=== PATIENT | female | born 1960 | race Caucasian/White ===

== ENCOUNTER 2020-03-14 15:55 | Outpatient (CLI) | payer OTHER, SELFPAY ==
--- NOTE | 2020-03-14 16:15 | XR_ITS ---
WS: [id number] SCREENING DEXA SCAN [employer] CLINICAL INFORMATION: Screening COMPARISON: September 09, 2017 FINDINGS: The L1-L4 bone mineral density measures 0.994 g/cm2. This corresponds to a T score score of -1.6 and Z score of -0.2. Left femoral neck bone mineral density measures 0.791 g/cm2. This corresponds to a T score of -1.7 an d Z score of -0.7. Right femoral neck bone mineral density measures 0.800 g/cm2. This corresponds to a T score -1.7of an d Z score of -0.6. Mean femoral neck bone mineral density measures 0.796 g/cm2. This corresponds to a T score of -1.7 an d Z score of -0.7. XR/XR DEXA axial skeleton* 21875 IMPRESSION: Osteopenia Patient's FRAX calculated 10 year probability for major osteoporotic fracture i s 14.5 % and osteoporotic hip fracture is 2.0%. Bone mineral density in the lumbar spine decreased -8.8% and -5.6% in the femor al necks since 2017.
== END 2020-03-14 15:56 | disposition home or self-care (01) ==
LOC: RADWPI 15:59
PROVIDERS: Family Provider Family Medicine; PCP Family Medicine; Visit Provider Obstetrics & Gynecology
DX: Z13.820 Encounter for screening for osteoporosis (principal)
CPT/HCPCS: 77080

== ENCOUNTER 2020-06-23 07:58 | Outpatient (CLI) | payer OTHER, SELFPAY ==
[2020-06-23 08:28] LABS: Basophils % 0.9 %; Eosinophils # 0.1 10^3/uL (0.0-0.8); Eosinophils % 2.2 %; Hemoglobin 15.3 g/dL (11.5-15.3); Lymphocytes % 43.1 %; Mean Corpuscular HGB Conc 30.6 g/dL (30.0-36.0); Mean Corpuscular Hemoglobin 30.2 pg (28.0-34.0); Mean Corpuscular Volume 98.6 fL (81-99); Mean Platelet Volume 9.6 fL (7.4-10.4); Monocytes # 0.4 10^3/uL (0.2-0.9); Monocytes % 9.5 %; Neutrophils # 2.01 10^3/uL (1.8-7.7); Neutrophils % 44.1 %; Nucleated Red Blood Cells % 0 %; Platelet Count 217 10^3/cmm (130-400); Red Blood Count 5.07 10^6/uL (4.1-5.3); Red Cell Distribution Width 12.5 % (12.1-15.1); White Blood Count 4.6 10^3/uL (4.0-10.0)
[2020-06-23 09:01] LABS: Alanine Aminotransferase 18 U/L (0-33); Albumin Level 4.7 g/dL (3.5-5.2); Alkaline Phosphatase 85 IU/L (35-105); Anion Gap 12.1 (5-19); Aspartate Amino Transferase 23 U/L (0-32); Blood Urea Nitrogen 14 mg/dL (8-23); Calcium 9.5 mg/dL (8.5-10.5); Carbon Dioxide 26 mmol/L (22-29); Chloride 106 mmol/L (98-107); Chol HDL Ratio 3.24 mg/dL (0.0-4.40); Cholesterol 233 mg/dL (0-200); Globulin 2.6 g/dL (1.3-4.6); Glomerular Filtration Rate 85.4 mL/min (90-130); Glucose 102 mg/dL (65-115); HDL Cholesterol 72 mg/dL (60-100); LDL Cholesterol Calculated 146 mg/dL (50-129); LDL HDL Ratio 2.03 RATIO (0.00-3.22); Osmolality Calculated 291 mOsm/kg (285-295); Potassium 4.1 mmol/L (3.5-5.1); Sodium 140 mmol/L (136-145); Total Bilirubin 0.8 mg/dL (0.15-1.2); Total Protein 7.3 g/dL (6.6-8.7); Triglycerides 77 mg/dL (0-150)
[2020-06-23 11:07] LABS: 25 Hydroxy Vitamin D 60 ng/mL (30-100)
--- NOTE | 2020-06-26 10:06 | ONC FU_ITS ---
Dr. Chi Patient Follow-Up Note Patient: Purvi Dinh Unit #: [id number]: 1960 Dicatated By: Romie Chi M.D.Date of Visit:Jun 23, 2020 Onc Med Follow-up/Prog Note Chief Complaint: Breast cancer. History of Present Illness: This is a 60 year-old woman with grade 1 infiltrating lobular carcinoma of the right breast, stage IA (T1 C, N0, M0), ER/ DE positive and HER-2/darron negative. She had presented with a lump in the right breast. She underwent excisional biopsy on 11/03/09. Pathology showed well differentiated infiltrating lobular carcinoma measuring 1.0 x 0.7 cm. It was ER positive at 89% and DE positive at 96%. It was negative for overexpression of HER-2/darron by IHC and by FISH. The Oncotype DX showed a recurrence score of 20, which was in the low intermediate range. She underwent bilateral mastectomy/TRAM flap reconstruction in November of 2010. She was given adjuvant chemotherapy with Adriamycin/cyclophosphamide. The treatment was stopped after 3 cycles due to multiple toxicities which included a significant increase in her alkaline phosphatase level. It subsequently did return to normal. In March 2011 she started hormonal therapy with tamoxifen, as she was premenopausal at the diagnosis of her of breast cancer. She had multiple side effects with it and it had be discontinued within a month of starting treatment. In June 2011 she restarted hormonal therapy with monthly Zoladex injections. Ultimately, she did undergo hysterectomy/bilateral salpingo-oophorectomy in March 2012, and as of May 2012 she continued adjuvant hormonal therapy with anastrozole. In March 2013 she seen in the emergency room on two occasions for passing out. Thereafter she did not pass out any more, but she did continue to have episodes of extreme weakness/fatigue. We were unable to find any definite cause for the episodes, but they did gradually resolve when she was taken off anastrozole. She restarted hormonal therapy with exemestane in August 2013. She was able to tolerate it with acceptable side effects. She opted to stop treatment in August 2017 after her breast cancer index study showed low risk for late recurrence at 3.5%. She has since then been followed on observation/expectant management. She has otherwise been in excellent health. She has no other medical illnesses. She did have evidence of osteopenia on her baseline bone density study, which showed a T-score of -1.90 in the left femoral neck. She opted to limit treatment for it to calcium and vitamin D supplements. She is seen for a scheduled visit. She has been feeling good generally. She has good energy and she has normal activity. ECOG score is 0. Her appetite is good. She has no fever, night sweats, or hot flashes. She had a lingering cough following a cold back in April, but that has now resolved. She does not complain of shortness of breath or chest pain. She has no GI/ complaints other than her bowels tend to be a little slow. She currently has no joint or bone pain. She has headache only rarely. She occasionally gets dizzy. She has noticed that her Raynaud's symptoms are a little worse. She has no focal neurologic symptoms. Medications: Acetaminophen 2 (500 mg) Tablet Oral PRN, Clobetasol Propionate (0.05 %) Lotion Topical Take as Directed, Macrobid 1 (100 mg) Capsule Oral b.i.d., Nitroglycerin 1 (2 %) Ointment Transdermal PRN, Premarin 1 (0.625 mg/g) Cream Vaginal q 7 days, Vitamin D 1 Tablet Oral daily Allergies: ancef, Percocet, Vancomycin HCl in Dextrose, and zithromycin. Review of Systems: Constitutional - She is feeling good. Her energy is good and she has normal activity without restrictions. Her appetite is good and her weight is down a couple pounds from last year. No fever, night sweats, or hot flashes. ECOG score is 0, ENMT - She has chronic sinusitis. No mouth sores. No sore throat or difficulty swallowing, Hematologic/Lymphatic - She bruises easily, Breasts - She reports that she has recently noticed some redness to her right breast where the nipple was reconstructed, Respiratory - No shortness of breath. No cough. No pleuritic pain or hemoptysis, Cardiovascular - No angina pain. No palpitations, Gastrointestinal - No nausea or vomiting. No heartburn or acid reflux. No diarrhea or constipation. No blood in the stool or black stools, Genitourinary (F) - No dysuria or hematuria. No urinary frequency. No urgency or incontinence, Musculoskeletal - No joint or bone pain, Integumentary - No skin complications, Neurologic - She rarely has a headache. No dizziness. The tingling in her fingers from her Raynaud's is worse. No other focal neurologic symptoms, Psychiatric - No anxiety or depression. She has some difficulty sleeping. Vital Signs: Performed on Jun 23, 2020 09:45 Height - 67.00 in Weight - 133.8 lbs (LOW) BSA - 1.70 sq.m BMI - 20.96 Temperature - 97.6 F (LOW) Pulse - 64 /min Respiration - 16 /min BP - 133/52 mm(hg) O2 Sat - 100 % Pain - 0 Physical Examination: Constitutional - She looks good generally, Eyes - Sclerae nonicteric. Conjunctivae clear, ENMT - No lesions noted in the oral cavity, Hematologic/Lymphatic - No cervical or clavicular adenopathy, Respiratory - Lungs are clear with good air movement bilaterally, Cardiovascular - Heart rhythm is regular. There is no murmur, gallop, or rub noted, Breasts - There are no lesions noted in the chest wall/breast reconstruction bilaterally. There is no axillary adenopathy, Abdomen - Soft. Liver and spleen are not enlarged. There is no abdominal mass or ascites noted and there is no inguinal adenopathy, Extremities - No edema, Neurologic - No focal neurologic deficits noted. Lab/Imaging: Test performed on Jun 23, 2020 08:24 Vitamin D (25-Hydroxy), Total 60 ng/mL Test performed on Jun 23, 2020 08:08 Cholesterol, Total 233 mg/dL Sodium 140 mmol/L Potassium 4.1 mmol/L Triglycerides 77 mg/dL Chloride 106 mmol/L LDL Cholesterol 146 mg/dL CO2 26 mmol/L Anion Gap 12.1 HDL Cholesterol 72 mg/dL BUN 14 mg/dL Cholesterol/HDL Ratio 3.24 mg/dL Creatinine 0.7 mg/dL LDL / HDL Ratio 2.03 RATIO Cr Clearance (Est) 81.89 mL/min eGFR 85.4 mL/min Glucose 102 mg/dL Osmolality - Calculated 291 mOsm/kg Calcium 9.5 mg/dL Protein, Total 7.3 g/dL Albumin 4.7 g/dL Globulin 2.6 g/dL Bilirubin, Total 0.8 mg/dL ALT (SGPT) 18 U/L AST (SGOT) 23 U/L Alkaline Phosphatase 85 IU/L WBC 4.6 10 3/uL RBC 5.07 10 6/uL HGB 15.3 g/dL HCT 50.0 % MCV 98.6 fL MCH 30.2 pg MCHC 30.6 g/dL RDW 12.5 % Platelet Count 217 10 3/cmm MPV 9.6 fL Neutrophils 2.01 10 3/uL Lymphocytes 2.0 10 3/uL Monocytes 0.4 10 3/uL Eosinophils 0.1 10 3/uL Basophils 0.0 10 3/uL Neutrophil % 44.1 % Lymphocyte % 43.1 % Monocyte % 9.5 % Eosinophil % 2.2 % Basophils % 0.9 % NRBC % 0 % Impression: 1. Patient with infiltrating lobular carcinoma the right breast, stage I, ER/DE positive and HER-2/darron negative. She was low risk by Oncotype DX. 2. She underwent bilateral mastectomy/TRAM flap reconstruction in November 2010. 3. She was given an abbreviated course of adjuvant chemotherapy with Adriamycin/cyclophosphamide. It was stopped after 3 cycles due to a significant increase in her alkaline phosphatase, which subsequently returned to normal. 4. She had a very brief course of adjuvant hormonal therapy with tamoxifen, which she tolerated very poorly. 5. She then continued hormonal therapy with Zoladex, and ultimately she underwent hysterectomy/bilateral salpingo-oophorectomy in March 2012. 6. Further hormonal therapy with anastrazole began in May 2012. It was stopped as of March 2013 when she developed syncope and episodes of extreme fatigue, and those symptoms subsequently resolved. 7. She restarted hormonal therapy with exemestane as of August 2013. She was able to tolerate it with acceptable toxicity. She stopped treatment in August 2017 after her breast cancer index study showed low risk for late recurrence at 3.5%. She felt significantly better after stopping the exemestane. During subsequent follow-up she has been doing well clinically. Thus far there has been no evidence of recurrence of the breast cancer. Plan: She remains on observation/expectant management. She will be scheduled for a follow-up visit in one year. Signed By: Romie Chi M.D. <<Signature on File>>
== END 2020-06-23 07:59 | disposition home or self-care (01) ==
LOC: ONCMED 08:02
PROVIDERS: PCP Family Medicine; Visit Provider Internal Medicine Medical Oncology
DX: Z08 Encounter for follow-up examination after completed treatment for malignant neoplasm (principal); Z85.3 Personal history of malignant neoplasm of breast; Z92.23 Personal history of estrogen therapy; Z90.13 Acquired absence of bilateral breasts and nipples; Z92.21 Personal history of antineoplastic chemotherapy
CPT/HCPCS: 36415; 80053; 80061; 82306; 85025; G0463

== ENCOUNTER → 2020-08-12 15:10 | Outpatient (BNVA) | payer OTHER, SELFPAY | PROVIDERS: PCP Family Medicine; Visit Provider Nurse Practitioner Family | DX: Z20.828 Contact with and (suspected) exposure to other viral communicable diseases (principal) | CPT/HCPCS: 87635 ==

== ENCOUNTER 2020-08-17 09:00 | Outpatient (CLI) | payer OTHER, SELFPAY | END 2020-08-17 09:01 | disposition home or self-care (01) | LOC: ONCMED 09:04 | PROVIDERS: PCP Family Medicine; Visit Provider Internal Medicine Medical Oncology | DX: Z85.3 Personal history of malignant neoplasm of breast (principal) | CPT/HCPCS: 36415 ==

== ENCOUNTER 2021-06-27 08:25 | Outpatient (CLI) | payer OTHER, SELFPAY ==
[2021-06-27 09:24] LABS: Basophils % 0.5 %; Eosinophils # 0.1 10^3/uL (0.0-0.8); Eosinophils % 2.2 %; Hematocrit 46.1 % (37.0-47.0); Lymphocytes # 1.8 10^3/uL (0.8-4.8); Lymphocytes % 30.5 %; Mean Corpuscular HGB Conc 32.5 g/dL (30.0-36.0); Mean Corpuscular Hemoglobin 30.7 pg (28.0-34.0); Mean Corpuscular Volume 94.3 fl (81-99); Mean Platelet Volume 9.8 fL (7.4-10.4); Monocytes # 0.4 10^3/uL (0.2-0.9); Monocytes % 6.6 %; Neutrophils # 3.63 10^3/uL (1.8-7.7); Nucleated Red Blood Cells % 0 %; Platelet Count 226 10^3/cmm (130-400); Red Blood Count 4.89 10^6/uL (4.1-5.3); Red Cell Distribution Width 12.1 % (12.1-15.1)
[2021-06-27 09:41] LABS: Alanine Aminotransferase 19 U/L (0-33); Albumin Level 4.3 g/dL (3.5-5.2); Alkaline Phosphatase 74 IU/L (35-105); Anion Gap 12.4 (5-19); Aspartate Amino Transferase 24 U/L (0-32); Blood Urea Nitrogen 15 mg/dL (8-23); Calcium 9.4 mg/dL (8.5-10.5); Carbon Dioxide 27 mmol/L (22-29); Chloride 101 mmol/L (98-107); Globulin 2.4 g/dL (1.3-4.6); Glomerular Filtration Rate 101.6 mL/min (90-130); Glucose 94 mg/dL (65-115); Osmolality Calculated 285 mOsm/kg (285-295); Potassium 3.4 mmol/L (3.5-5.1); Sodium 137 mmol/L (136-145); Total Bilirubin 0.7 mg/dL (0.15-1.2); Total Protein 6.7 g/dL (6.6-8.7)
--- NOTE | 2021-06-27 18:59 | ONC FU_ITS ---
Dr. Chi Patient Follow-Up Note Patient: Purvi Dinh Unit #: [id number]: 1960 Dicatated By: Romie Chi M.D.Date of Visit:Jun 27, 2021 Onc Med Follow-up/Prog Note Chief Complaint: Breast cancer. History of Present Illness: This is a 61 year-old woman with grade 1 infiltrating lobular carcinoma of the right breast, stage IA (T1 C, N0, M0), ER/ MS positive and HER-2/darron negative. She had presented with a lump in the right breast. She underwent excisional biopsy on 11/03/09. Pathology showed well differentiated infiltrating lobular carcinoma measuring 1.0 x 0.7 cm. It was ER positive at 89% and MS positive at 96%. It was negative for overexpression of HER-2/darron by IHC and by FISH. The Oncotype DX showed a recurrence score of 20, which was in the low intermediate range. She underwent bilateral mastectomy/TRAM flap reconstruction in November of 2010. She was given adjuvant chemotherapy with Adriamycin/cyclophosphamide. The treatment was stopped after 3 cycles due to multiple toxicities which included a significant increase in her alkaline phosphatase level. It subsequently did return to normal. In March 2011 she started hormonal therapy with tamoxifen, as she was premenopausal at the diagnosis of her of breast cancer. She had multiple side effects with it and it had be discontinued within a month of starting treatment. In June 2011 she restarted hormonal therapy with monthly Zoladex injections. Ultimately, she did undergo hysterectomy/bilateral salpingo-oophorectomy in March 2012, and as of May 2012 she continued adjuvant hormonal therapy with anastrozole. In March 2013 she seen in the emergency room on two occasions for passing out. Thereafter she did not pass out any more, but she did continue to have episodes of extreme weakness/fatigue. We were unable to find any definite cause for the episodes, but they did gradually resolve when she was taken off anastrozole. She restarted hormonal therapy with exemestane in August 2013. She was able to tolerate it with acceptable side effects. She opted to stop treatment in August 2017 after her breast cancer index study showed low risk for late recurrence at 3.5%. She was then followed on observation/expectant management. She has otherwise been in excellent health. She has no other medical illnesses. She did have evidence of osteopenia on her baseline bone density study, which showed a T-score of -1.90 in the left femoral neck. She opted to limit treatment for it to calcium and vitamin D supplements. She is seen for a scheduled visit. She has been feeling good generally. She says her energy is improving. She has normal activity. Her ECOG score is 0. She has good appetite. She has no fever, night sweats, or hot flashes. She has allergy related sinus symptoms. She has no shortness of breath, cough, or chest pain. She had been complaining of abdominal gas and bloating, but that has improved by avoiding milk products. Recently she has been having muscular type pain in the lower abdomen on the left side. Bowel and bladder function have been OK. She has no significant joint or bone pain. She does not complain of headache. She has a little numbness in her feet. Medications: Acetaminophen 2 (500 mg) Tablet Oral PRN, Clobetasol Propionate (0.05 %) Lotion Topical Take as Directed, Macrobid 1 (100 mg) Capsule Oral b.i.d., Nitroglycerin 1 (2 %) Ointment Transdermal PRN, Premarin 1 (0.625 mg/g) Cream Vaginal q 7 days, Vitamin D 1 Tablet Oral daily Allergies: ancef, Percocet, Vancomycin HCl in Dextrose, and zithromycin. Vital Signs: Performed on Jun 27, 2021 10:21 Height - 67.00 in Weight - 136.6 lbs (HIGH) BSA - 1.72 sq.m BMI - 21.39 Temperature - 97.3 F (LOW) Pulse - 68 /min Respiration - 16 /min BP - 121/76 mm(hg) O2 Sat - 99 % Pain - 6 Fatigue - 0 Physical Examination: Constitutional - She looks good generally, Eyes - Sclerae nonicteric. Conjunctivae clear, ENMT - No lesions noted in the oral cavity, Hematologic/Lymphatic - No cervical, clavicular, or axillary adenopathy, Respiratory - Lungs are clear with good air movement bilaterally, Cardiovascular - Heart rhythm is regular. There is no murmur, gallop, or rub noted, Abdomen - Soft. There is focal tenderness in the abdominal wall just to the left of the umbilicus. Liver and spleen are not enlarged. There is no abdominal mass or ascites noted and there is no inguinal adenopathy, Extremities - No edema, Neurologic - No focal neurologic deficits noted. Lab/Imaging: Test performed on Jun 27, 2021 08:58 Sodium 137 mmol/L Potassium 3.4 mmol/L Chloride 101 mmol/L CO2 27 mmol/L Anion Gap 12.4 BUN 15 mg/dL Creatinine 0.6 mg/dL Cr Clearance (Est) 96.31 mL/min eGFR 101.6 mL/min Glucose 94 mg/dL Osmolality - Calculated 285 mOsm/kg Calcium 9.4 mg/dL Protein, Total 6.7 g/dL Albumin 4.3 g/dL Globulin 2.4 g/dL Bilirubin, Total 0.7 mg/dL ALT (SGPT) 19 U/L AST (SGOT) 24 U/L Alkaline Phosphatase 74 IU/L WBC 6.0 10 3/uL RBC 4.89 10 6/uL HGB 15.0 g/dL HCT 46.1 % MCV 94.3 fl MCH 30.7 pg MCHC 32.5 g/dL RDW 12.1 % Platelet Count 226 10 3/cmm MPV 9.8 fL Neutrophils 3.63 10 3/uL Lymphocytes 1.8 10 3/uL Monocytes 0.4 10 3/uL Eosinophils 0.1 10 3/uL Basophils 0.0 10 3/uL Neutrophil % 60.0 % Lymphocyte % 30.5 % Monocyte % 6.6 % Eosinophil % 2.2 % Basophils % 0.5 % NRBC % 0 % Problem List: 1. Iinfiltrating lobular carcinoma the right breast, stage I, ER/MS positive and HER-2/darron negative. She was low risk by Oncotype DX. 2. Osteopenia. Problems Addressed with this Encounter and Plan: Patient with infiltrating lobular carcinoma the right breast, stage I, ER/MS positive and HER-2/darron negative. She was low risk by Oncotype DX. She underwent bilateral mastectomy/TRAM flap reconstruction in November 2010. She was given an abbreviated course of adjuvant chemotherapy with Adriamycin/cyclophosphamide. It was stopped after 3 cycles due to a significant increase in her alkaline phosphatase, which subsequently returned to normal. She had a very brief course of adjuvant hormonal therapy with tamoxifen, which she tolerated very poorly. She then continued hormonal therapy with Zoladex, and ultimately she underwent hysterectomy/bilateral salpingo-oophorectomy in March 2012. Further hormonal therapy with anastrazole began in May 2012. It was stopped as of March 2013 when she developed syncope and episodes of extreme fatigue, and those symptoms subsequently resolved. She restarted hormonal therapy with exemestane as of August 2013. She was able to tolerate it with acceptable toxicity. She stopped treatment in August 2017 after her breast cancer index study showed low risk for late recurrence at 3.5%. She felt significantly better after stopping the exemestane. During subsequent follow-up she has been doing well clinically. Thus far there has been no evidence of recurrence of the breast cancer. She continues expectant management with her primary care provider. As she is now 10 years out from completion of her chemotherapy, I will plan to see her again only as needed. Signed By: Romie Chi M.D. <<Signature on File>>
== END 2021-06-27 08:26 | disposition home or self-care (01) ==
LOC: ONCMED 08:28
PROVIDERS: PCP Family Medicine; Visit Provider Internal Medicine Medical Oncology
DX: Z08 Encounter for follow-up examination after completed treatment for malignant neoplasm (principal); Z85.3 Personal history of malignant neoplasm of breast; Z90.13 Acquired absence of bilateral breasts and nipples; Z92.21 Personal history of antineoplastic chemotherapy; Z79.899 Other long term (current) drug therapy
CPT/HCPCS: 36415; 80053; 85025; G0463